=== PATIENT | female | born 1950 | race Caucasian/White ===

== ENCOUNTER 2016-12-26 09:31 | Emergency (ER) | payer MEDICARE, OTHER ==
[~2016-12-26] VITALS: Ht 160 cm; Wt 83.2 kg
[~2016-12-26 09:31] MED LIST: LIP PO; METOPROLOL25 MG PO; PLAVIX 75MG TAB75 MG PO; PRINIVIL5 MG PO; ZOLOFT 50MG50 MG PO
[2016-12-26 09:32] VITALS: TEMP 98.2
[2016-12-26 10:12] LABS: BASO % 0.8 % (0.0-2.0); EOS # 0.1 (0.0-0.7); EOS % 1.8 % (0-4.0); GRAN # 3.3 (1.4-6.5); GRAN % 65.1 % (42.2-75.2); HEMATOCRIT 34.4 % (37.0-47.0); HEMOGLOBIN 10.7 g/dl (12.5-16.0); LYMPH # 1.3 (1.2-3.4); LYMPH % 25.8 % (20.0-51.0); MEAN CELL VOLUME 83 fl (80.0-100.0); MEAN CORPUSCULAR HEMOGLOBIN 26 pg (27.0-31.0); MEAN CORPUSCULAR HGB CONC 31 g/dl (33.0-37.0); MEAN PLATELET VOLUME 10.7 fl (7.4-10.4); MONO # 0.3 (0.1-0.6); MONO % 6.3 % (1.7-9.3); PLATELET COUNT 238 K/mm3 (130-400); RED BLOOD COUNT 4.13 M/mm3 (4.10-5.30); REDCELL DISTRIBUTION WIDTH-CV 15.4 % (11.5-14.5); WHITE BLOOD COUNT 5.1 K/mm3 (4.8-10.8)
[2016-12-26 10:25] LABS: ALBUMIN 4.1 gm/dL (3.5-5.0); BILIRUBIN,TOTAL 0.5 mg/dL (0.0-1.0); CALCIUM 9.1 mg/dL (8.4-10.2); CREATININE, serum 0.65 mg/dL (0.52-1.25); POTASSIUM 4.3 mmol/L (3.4-5.0); TOTAL PROTEIN 6.8 gm/dL (6.4-8.2)
[2016-12-26 10:45] LABS: PH 7 (5-8); SQUAMOUS EPITHELIAL None Seen /hpf; URINE APPEARANCE Clear; URINE BACTERIA None Seen /hpf; URINE BILIRUBIN Negative (NEGATIVE); URINE BLOOD Negative (NEGATIVE); URINE COLOR Yellow; URINE GLUCOSE Negative (NEGATIVE); URINE KETONE Negative (NEGATIVE); URINE RBC 0-2 /hpf; URINE UROBILINOGEN Negative (NEGATIVE); URINE WBC 0-2 /hpf
[2016-12-26] MEDS ORDERED: ZOFRAN ODT4 MG PO (13:19)
[2016-12-26] MEDS ORDERED: NORCO 325 MG-51 TAB PO (13:19)
[2016-12-26 13:30] VITALS: BP 147/77; PULSE 62
== END 2016-12-26 13:36 | disposition home or self-care (01) ==
LOC: COL.ER 09:31
PROVIDERS: Emergency Medicine
DX: R10.30 Lower abdominal pain, unspecified (principal); E78.5 Hyperlipidemia, unspecified; I10 Essential (primary) hypertension; Z95.5 Presence of coronary angioplasty implant and graft
CPT/HCPCS: J2765; J3010; J7030; Q9967

== ENCOUNTER → 2017-02-28 | Outpatient (CLI) | payer MEDICARE, OTHER ==
[~2017-02-28] MED LIST changes: +NORCO 325 MG-51 TAB PO; +ZOFRAN ODT4 MG PO
== END ==
LOC: MC.RAD 13:18
DX: Z12.31 Encounter for screening mammogram for malignant neoplasm of breast (principal)

== ENCOUNTER → 2018-09-26 | Outpatient (CLI) | payer MEDICARE, OTHER | LOC: COL.RAD 07:30 | DX: K59.00 Constipation, unspecified (principal) | CPT/HCPCS: A9541 ==

== ENCOUNTER → 2018-11-21 | Outpatient (CLI) | payer MEDICARE, OTHER | LOC: COL.RAD 11-20 08:30 | DX: K58.9 Irritable bowel syndrome, unspecified (principal); K80.20 Calculus of gallbladder without cholecystitis without obstruction; R68.81 Early satiety | CPT/HCPCS: Q9967 ==

== ENCOUNTER → 2019-01-02 | Outpatient (CLI) | payer MEDICARE, OTHER | LOC: MC.RAD 10:20 | DX: Z12.31 Encounter for screening mammogram for malignant neoplasm of breast (principal) ==

== ENCOUNTER 2019-03-02 15:27 | Outpatient (RCR) | payer SELFPAY | END 2019-03-04 | disposition still patient (30) | LOC: COL.CR | DX: Z02.89 Encounter for other administrative examinations (principal) ==

== ENCOUNTER 2019-03-05 16:02 | Outpatient (RCR) | payer SELFPAY ==
[~2019-03-05 16:02] MED LIST changes: -METOPROLOL25 MG PO; +TOPROL XL 25MG25 MG PO
[2019-03-09] MEDS ORDERED: VOLTAREN 75 DR75 MG PO (15:00)
[2019-03-09] MEDS ORDERED: CITRACAL + D CA1 TAB PO (15:01)
[2019-03-09] MEDS ORDERED: MYRBETR25MG PO (15:02)
[2019-03-09] MEDS ORDERED: VITAMIN D31000 I1 PO (15:03)
[2019-03-09] MEDS ORDERED: ASPIRIN 81M81 MG/TA2 PO (15:04)
[2019-04-26] MEDS ORDERED: LIPITOR 80MG80 MG PO (10:16)
== END 2019-06-03 | disposition home or self-care (01) ==
LOC: COL.CR
DX: Z02.89 Encounter for other administrative examinations (principal)

== ENCOUNTER → 2019-03-13 | Outpatient (CLI) | payer MEDICARE, OTHER ==
[~2019-03-13] VITALS: Ht 160 cm; Wt 74.4 kg
[~2019-03-13] MED LIST changes: +ASPIRIN 81M81 MG/TA2 PO; +CITRACAL + D CA1 TAB PO; +METOPROLOL25 MG PO; +MYRBETR25MG PO; -TOPROL XL 25MG25 MG PO; +VITAMIN D31000 I1 PO; +VOLTAREN 75 DR75 MG PO
[2019-03-13 14:28] VITALS: BP 144/84; PULSE 61
--- NOTE | 2019-03-13 14:58 | NUR ---
pt able to ambulate without difficulty. Denies pain at this time. Discharge instructions gone over with pt and pt verbalized understanding of instructions. Pt out to car per wheelchair. Pt up and into vehicle without assistance.
== END ==
LOC: COL.RAD 13:00
DX: M48.061 Spinal stenosis, lumbar region without neurogenic claudication (principal)
CPT/HCPCS: J3301

== ENCOUNTER → 2019-04-04 | Outpatient (CLI) | payer MEDICARE, OTHER ==
[~2019-04-04] VITALS: Ht 160 cm; Wt 74.8 kg
[2019-04-04 06:48] VITALS: BP 127/76; PULSE 62
[2019-04-04 08:22] VITALS: BP 136/92; PULSE 56
--- NOTE | 2019-04-04 08:42 | NUR ---
PT TAKEN DOWNSTAIRS TO POV AND PT ABLE TO GET INTO VEHICLE WITHOUT DIFFICULTY. SPOUSE DRIVES HOME
== END ==
LOC: COL.RAD 06:30
DX: M48.061 Spinal stenosis, lumbar region without neurogenic claudication (principal)
CPT/HCPCS: J3301

== ENCOUNTER → 2019-05-01 | Outpatient (CLI) | payer MEDICARE, OTHER ==
[~2019-05-01] VITALS: Ht 160 cm; Wt 74.6 kg
[~2019-05-01] MED LIST changes: +LIPITOR 80MG80 MG PO; -METOPROLOL25 MG PO; +TOPROL XL 25MG25 MG PO
[2019-05-01 08:57] VITALS: BP 129/87; PULSE 60
[2019-05-01 10:30] VITALS: BP 148/85; PULSE 58
--- NOTE | 2019-05-01 10:50 | NUR ---
Pt up and ambulates in room. Reports tingling has decreased. Pt verbalized understanding of discharge instructions. Denies wanting copy of instructions. Pt out to car per wheelchair. Pt up into car with minimal assistance.
== END ==
LOC: COL.RAD 08:45
DX: M48.061 Spinal stenosis, lumbar region without neurogenic claudication (principal)
CPT/HCPCS: J3301

== ENCOUNTER → 2020-05-23 | Outpatient (CLI) | payer MEDICARE, OTHER | LOC: MC.RAD 14:25 | DX: Z12.31 Encounter for screening mammogram for malignant neoplasm of breast (principal) ==